=== PATIENT | female | born 1960 | race Caucasian/White ===

== ENCOUNTER 2019-02-21 06:50 | Emergency (ER) | payer MEDICAID ==
[~2019-02-21] VITALS: Ht 167.6 cm; Wt 68.2 kg
[~2019-02-21 06:50] MED LIST: FURO40TA4 PO; LACT10SO PO; LACT10SO7 PO; SERT50TA10 PO; SPIR100T5 PO
[2019-02-21] MEDS ORDERED: normal saline 1000ML IV soln IVB ONE (07:25)
[2019-02-21] MEDS ORDERED: chlordiazePOXIDE 25mg capsule PO ONE (07:25)
[2019-02-21 07:34] LABS: BASOPHILS % (AUTO) 0.9 % (0-1); EOSINOPHILS # (AUTO) 0.1 X10'3 (0-0.9); HEMATOCRIT 33.9 % (35.0-45.0); HEMOGLOBIN 11.3 g/dl (12.0-16.0); LYMPHOCYTES # (AUTO) 1.2 X10'3 (1.1-4.8); LYMPHOCYTES % (AUTO) 24.2 % (21-51); MEAN CORPUSCULAR HGB CONC 33.4 g/dL (33.0-36.5); MEAN CORPUSCULAR VOLUME 86.8 FL (78-98); MEAN PLATELET VOLUME 8.5 FL (7.4-10.4); MONOCYTES # (AUTO) 0.7 X10'3 (0-0.9); MONOCYTES % (AUTO) 15.7 % (2-12); NEUTROPHILS # (AUTO) 2.7 X10'3 (1.8-7.7); NEUTROPHILS % (AUTO) 57.2 % (42-75); PLATELET COUNT 279 X10'3 (140-440); RED CELL DISTRIBUTION WIDTH 20.3 % (11.5-14.5); WHITE BLOOD COUNT 4.8 X10'3 (4.5-11.0)
[2019-02-21 07:47] LABS: ALANINE AMINOTRANSFERASE 31 U/L (12-78); ALBUMIN 2.6 G/DL (3.4-5.0); ALBUMIN/GLOBULIN RATIO 0.4 (1.1-1.5); ALKALINE PHOSPHATASE 61 IU/L (46-116); ANION GAP 11 (8-16); ASPARTATE AMINO TRANSFERASE 67 U/L (10-37); BILIRUBIN,TOTAL 3.3 MG/DL (0.1-1.0); BLOOD UREA NITROGEN 9 MG/DL (7-18); BUN/CREATININE RATIO 12.5 (6.6-38.0); CALCIUM 9.1 MG/DL (8.5-10.1); CHLORIDE 107 MMOL/L (99-107); CREATININE 0.72 MG/DL (0.40-0.90); LIPASE 175 U/L (73-393); POTASSIUM 4.1 MMOL/L (3.5-5.1); SODIUM 139 MMOL/L (135-145); TOTAL CARBON DIOXIDE 21.2 MMOL/L (24-32); TOTAL PROTEIN 8.7 G/DL (6.4-8.2); eGFR 84 ML/MIN
[2019-02-21 07:49] LABS: GLUCOSE 117 MG/DL (70-104)
[2019-02-21] MEDS ORDERED: ondansetron/PF 4mg/2ml inj IV ONE (08:40)
[2019-02-21] MEDS ORDERED: pantoprazole 40 MG vial IV ONE (08:40)
[2019-02-21 08:47] LABS: CLARITY,URINE SLIGHTLY CLOUDY (Clear); GLUCOSE, URINE NEGATIVE (Neg); KETONES,URINE TRACE mg/dl (Neg); LEUKOCYTE ESTERASE ,URINE TRACE (Neg); NITRITES, URINE NEGATIVE (Neg); OCCULT BLOOD,URINE NEGATIVE (Neg); PROTEIN,URINE TRACE mg/dl (Neg)
[2019-02-21 08:52] LABS: COLOR,URINE AMBER (Yellow); UA COLLECTION TYPE VOIDED
[2019-02-21 08:55] LABS: BACTERIA,URINE 2+ /HPF (Neg); MUCUS STRANDS MANY /LPF (Neg); RBC,URINE 0-2 /HPF (0-2); SQUAMOUS EPITHELIAL CELL,UR MANY /LPF (FEW)
[2019-02-21] MEDS ORDERED: NITR100C6 PO (09:39)
[2019-02-21 09:47] VITALS: BP 124/80
== END 2019-02-21 09:50 | disposition home or self-care (01) ==
LOC: ER 06:51
DX: K70.30 Alcoholic cirrhosis of liver without ascites (principal); N39.0 Urinary tract infection, site not specified; F10.10 Alcohol abuse, uncomplicated; Z86.19 Personal history of other infectious and parasitic diseases; Z88.1 Allergy status to other antibiotic agents; Z79.899 Other long term (current) drug therapy; Y90.9 Presence of alcohol in blood, level not specified
CPT/HCPCS: 36415; 80053; 81001; 82140; 83690; 85025; 85610; 96374; 96375; 99283; C9113; J2405; J7030

== ENCOUNTER 2020-04-18 08:03 | Day surgery (SDC) | payer MEDICARE, MEDICAID ==
[2020-04-18] VITALS (10 sets, daily range): BP systolic 102–130; BP diastolic 47–88
[~2020-04-18] VITALS: Ht 165.1 cm; Wt 74.8 kg
[~2020-04-18 08:03] MED LIST changes: +NITR100C6 PO
[2020-04-18] MEDS ORDERED: LEVO25TA2 PO (08:48)
[2020-04-18] MEDS ORDERED: LACT10SO7 PO (08:48)
[2020-04-18] MEDS ORDERED: FURO-150 PO (08:48)
[2020-04-18] MEDS ORDERED: SERT-153 PO (08:48)
[2020-04-18] MEDS ORDERED: SPIR100T5 PO (08:48)
[2020-04-18] MEDS ORDERED: POTA20PA40 PO (08:48)
[2020-04-18] MEDS ORDERED: [UNRECOGNIZED DRUG - CODE] EACH EAR (08:48)
[2020-04-18] MEDS: albumin 25% 100mL bottle x 1 IV PRN ×3 (09:51→10:36)
== END 2020-04-18 12:50 | disposition home or self-care (01) ==
LOC: SSTAY O 08:03
PROVIDERS: ATTEND Radiology Diagnostic Radiology
DX: R18.8 Other ascites (principal); K74.60 Unspecified cirrhosis of liver; Z86.19 Personal history of other infectious and parasitic diseases; Z98.890 Other specified postprocedural states; Z88.1 Allergy status to other antibiotic agents; Z79.899 Other long term (current) drug therapy; Z83.79 Family history of other diseases of the digestive system
CPT/HCPCS: 49083; P9047

== ENCOUNTER 2020-06-20 10:04 | Day surgery (SDC) | payer MEDICARE, MEDICAID ==
[~2020-06-20] VITALS: Ht 160 cm; Wt 67.4 kg
[2020-06-20] VITALS (8 sets, daily range): BP systolic 90–123; BP diastolic 56–84
[~2020-06-20 10:04] MED LIST changes: +FURO-150 PO; -FURO40TA4 PO; -LACT10SO PO; +LEVO25TA2 PO; -NITR100C6 PO; +POTA20PA40 PO; +SERT-153 PO; +[UNRECOGNIZED DRUG - CODE] EACH EAR
[2020-06-20] MEDS: albumin 25% 100mL bottle x 1 IV PRN ×2 (10:52→11:43)
== END 2020-06-20 12:45 | disposition home or self-care (01) ==
LOC: SSTAY O 10:04
PROVIDERS: ATTEND Radiology Diagnostic Radiology
DX: R18.8 Other ascites (principal); K74.60 Unspecified cirrhosis of liver; Z98.890 Other specified postprocedural states; Z90.81 Acquired absence of spleen; Z88.1 Allergy status to other antibiotic agents; Z86.19 Personal history of other infectious and parasitic diseases; Z79.899 Other long term (current) drug therapy; Z81.1 Family history of alcohol abuse and dependence; Z83.79 Family history of other diseases of the digestive system
CPT/HCPCS: 49083; P9047

== ENCOUNTER 2020-09-05 05:41 | Day surgery (SDC) | payer MEDICARE, MEDICAID ==
[2020-09-05] VITALS (11 sets, daily range): BP systolic 98–135; BP diastolic 54–90
[~2020-09-05] VITALS: Ht 167.6 cm; Wt 70.0 kg
[~2020-09-05 05:41] MED LIST changes: -POTA20PA40 PO; -SERT50TA10 PO; -[UNRECOGNIZED DRUG - CODE] EACH EAR
[2020-09-05] MEDS: albumin (human) 25% 100ml IV 100 ML IV PRN ×2 (08:47→10:02)
== END 2020-09-05 11:00 | disposition home or self-care (01) ==
LOC: SSTAY O 05:41
PROVIDERS: ATTEND Radiology Diagnostic Radiology
DX: R18.8 Other ascites (principal); K74.60 Unspecified cirrhosis of liver; K72.90 Hepatic failure, unspecified without coma; Z98.890 Other specified postprocedural states; Z87.19 Personal history of other diseases of the digestive system; Z90.81 Acquired absence of spleen; Z88.1 Allergy status to other antibiotic agents; Z79.899 Other long term (current) drug therapy; Z81.1 Family history of alcohol abuse and dependence
CPT/HCPCS: 49083; P9047